=== PATIENT | male | born 1990 | race African-American/Black ===

== ENCOUNTER 2018-10-02 07:56 | Emergency (ER) | payer SELFPAY ==
[~2018-10-02] VITALS: Ht 167.6 cm; Wt 61.7 kg
[2018-10-02 08:17] VITALS: BP 114/70
--- NOTE | 2018-10-02 08:20 | NUR ---
ED Nurse Note: Patient walked in to ER c/o SOB. pt aao x4 and ambulates with steady gait. skin clean and intact. pt coughing frequently with barking sound noted. no N/V. pt c/o sore throat 02/23.
[2018-10-02] MEDS ORDERED: Ipratropium 0.02% Inh Soln 2.5ml UD HHN SCH (08:30)
[2018-10-02] MEDS ORDERED: Albuterol ud Inhalation HHN SCH (08:30)
--- NOTE | 2018-10-02 09:00 | NUR ---
ED Nurse Note: Patient received breathing treatment at the bedside.
--- NOTE | 2018-10-02 09:52 | NUR ---
ED Nurse Note: ERMD at bedside speaking to the pt.
[2018-10-02] MEDS ORDERED: ALBUTEROL SULF8.5 GM INH (09:58)
[2018-10-02] MEDS ORDERED: PROMETHAZINE-C118 M1 ORAL (09:58)
[2018-10-02] MEDS ORDERED: FLOVENT2 PUFF2 INH (09:58)
[2018-10-02] MEDS ORDERED: PREDNISONE20 MG ORAL (09:58)
[2018-10-02 10:10] VITALS: BP 114/70
--- NOTE | 2018-10-02 10:10 | NUR ---
ER DISCHARGE NOTE: Patient is cleared to be discharged per ERMD DR Chavez, pt is aox4, on room air, with stable vital signs. pt was given dc and prescription instructions, pt was able to verbalize understanding, pt id band removed without complications. pt is able to ambulate with steady gait. pt took all belongings.
--- NOTE | 2018-10-02 11:42 | Emergency Room Report ---
History of Present Illness General Chief Complaint: Upper Respiratory Illness Source: Patient, Family Member Present Illness HPI 28-year-old M presents ED for evaluation. complaining of shortness of breath, cough and wheezing for 2 weeks. History of asthma. Denies fevers or chills. Denies sore throat or earache. Denies sick contacts or recent travel. No other aggravating relieving factors. Denies any other associated symptoms Allergies: Coded Allergies: SULFA (SULFONAMIDE ANTIBIOTICS) (Verified Allergy, Severe, Anaphylaxis, ) SULFAMETHOXAZOLE (Verified Allergy, Severe, Anaphylaxis, 10/02/18) TRIMETHOPRIM (Verified Allergy, Severe, Anaphylaxis, 10/02/18) Patient History Past Medical History: asthma Past Surgical History: none Pertinent Family History: none Social History: Denies: smoking, alcohol use, drug use Immunizations: UTD Reviewed Nursing Documentation: PMH: Agreed; PSxH: Agreed Nursing Documentation-PMH Past Medical History: No History, Except For Hx Cardiac Problems: Yes - echmo, diaphragmatic hernia with repair Hx Asthma: Yes Review of Systems All Other Systems: negative except mentioned in HPI Physical Exam Vital Signs Date Time Temp Pulse Resp B/P (MAP) Pulse Ox O2 Delivery O2 Flow Rate FiO2 10/02/18 08:07 98.2 104 20 94 Room Air 10/02/18 08:17 114/70 Sp02 EP Interpretation: reviewed, normal General Appearance: no apparent distress, alert, GCS 15, non-toxic Head: normocephalic, atraumatic Eyes: bilateral eye normal inspection, bilateral eye PERRL ENT: hearing grossly normal, normal pharynx, no angioedema, normal voice Neck: full range of motion, supple/symm/no masses Respiratory: chest non-tender, decreased breath sounds, speaking full sentences , wheezing Cardiovascular #1: regular rate, rhythm, no edema Cardiovascular #2: 2+ carotid (R), 2+ carotid (L), 2+ radial (R), 2+ radial (L) , 2+ dorsalis pedis (R), 2+ dorsalis pedis (L) Gastrointestinal: normal bowel sounds, non tender, soft, non-distended, no guarding, no rebound Rectal: deferred Genitourinary: normal inspection, no CVA tenderness Musculoskeletal: back normal, gait/station normal, normal range of motion, non- tender Neurologic: alert, oriented x3, responsive, motor strength/tone normal, sensory intact, speech normal Psychiatric: judgement/insight normal, memory normal, mood/affect normal, no suicidal/homicidal ideation Reflexes: 3+ bicep (R), 3+ bicep (L), 3+ tricep (R), 3+ tricep (L), 3+ knee (R) , 3+ knee (L) Skin: normal color, no rash, warm/dry, well hydrated Lymphatic: no adenopathy Medical Decision Making Diagnostic Impression: Primary Impression: Bronchitis ER Course Hospital Course 28-year-old male presents to ED complaining of cough, wheezing Differential diagnoses include: URI, bronchitis, asthma/COPD, pneumonia Clinical course Patient placed on stretcher. After initial history and physical I ordered prednisone and nebulizer treatment. Upon reassessment patient states cough and symptoms have improved. Findings consistent with bronchitis. Discussed findings with patient. Patient states that he does use inhaler every day. I discussed the option of control steroid inhaler which patient agrees to. We'll prescribe Flovent. Does not have a PMD. We'll provide referrals Diagnosis - bronchitis Stable and discharged home with prescriptions for Rx prednisone, flovent, albuterol, promethazine/codeine. Instructed to followup with PMD. Return to ED if symptoms recur or worsen Last Vital Signs Date Time Temp Pulse Resp B/P (MAP) Pulse Ox O2 Delivery O2 Flow Rate FiO2 10/02/18 10:10 98.2 78 18 114/70 100 Room Air Status: improved Disposition: HOME, SELF-CARE Condition: Stable Scripts Fluticasone Propionate (Flovent Hfa) 12 Gm Aer.w.adap 2 PUFFS INH TWICE A DAY, #1 EA 0 Refills Prov: Joni Chavez MD 10/02/18 Codeine/Promethazine Hcl* (PROMETHAZINE-CODEINE SYRUP*) 118 Ml Syrup 5 ML ORAL Q6H PRN for For Cough, #118 ML 0 Refills Prov: Joni Chavez MD 10/02/18 Prednisone* (PREDNISONE*) 20 Mg Tablet 40 MG ORAL DAILY, #10 TAB Prov: Joni Chavez MD 10/02/18 Albuterol Sulfate* (ALBUTEROL SULFATE MDI*) 8.5 Gm Hfa.aer.ad 2 PUFF INH Q6H, #1 EA 0 Refills Prov: Joni Chavez MD 10/02/18 Referrals: NOT CHOSEN IPA/,REFERRING (PCP) Meeta Mai [facility]. [facility] Patient Instructions: Acute Bronchitis, [id number] Additional Instructions: complete prednisone prescription. then start flovent Joni Chavez MD October 02, 2018 11:42
== END 2018-10-02 10:11 | disposition home or self-care (01) ==
LOC: EMR 08:24
DX: J20.9 Acute bronchitis, unspecified (principal); Z88.0 Allergy status to penicillin; Z88.8 Allergy status to other drugs, medicaments and biological substances
CPT/HCPCS: 94640; 94664; 99284; J7512

== ENCOUNTER 2019-04-20 09:04 | Emergency (ER) | payer SELFPAY ==
[~2019-04-20] VITALS: Ht 167.6 cm; Wt 59.0 kg
[~2019-04-20 09:04] MED LIST: ALBUTEROL SULF8.5 GM INH; FLOVENT2 PUFF2 INH; PREDNISONE20 MG ORAL; PROMETHAZINE-C118 M1 ORAL
[2019-04-20 09:29] VITALS: BP 126/85
--- NOTE | 2019-04-20 09:35 | NUR ---
ED Nurse Note: pt walked in c/o headache x 1 month and sob pt speaking in clear full sentences no sob notes. pt awaiting ermd eval.
[2019-04-20] MEDS ORDERED: Albuterol ud Inhalation HHN ONE (09:45)
[2019-04-20] MEDS ORDERED: Pseudoephedrine 30mg tab ORAL ONE (09:45)
[2019-04-20] MEDS ORDERED: Ipratropium 0.02% Inh Soln 2.5ml UD HHN ONE (09:45)
--- NOTE | 2019-04-20 10:31 | Emergency Room Report ---
History of Present Illness General Chief Complaint: Headache Source: Patient Present Illness HPI Patient presents with headache, sinus pain and wheezing. He has a nebulizer at home and has been using this. He denies any fevers or chills. He has some yellow discharge from his nose but when he coughs there is clear phlegm. He denies any sore throat. There is no nausea, vomiting or diarrhea. The pain in his head is rated 7/10 and aching mainly in his maxillary sinuses. Denies any neck pain. No blood thinners, IV drug use, oncologic problems, unilateral weakness or numbness. History of asthma. His brother is being seen today with strep pharyngitis. No chest pain, palpitations, dysuria, abdominal pain, joint pain, rashes, depression, anxiety, visual changes, dizziness. Allergies: Coded Allergies: SULFA (SULFONAMIDE ANTIBIOTICS) (Verified Allergy, Severe, Anaphylaxis, ) SULFAMETHOXAZOLE (Verified Allergy, Severe, Anaphylaxis, 10/02/18) TRIMETHOPRIM (Verified Allergy, Severe, Anaphylaxis, 10/02/18) Patient History Past Medical History: see triage record Past Surgical History: other - Diaphragmatic hernia Social History: Reports: drug use - THC; Denies: smoking Social History Narrative Lives with his brother Reviewed Nursing Documentation: PMH: Agreed; PSxH: Agreed Nursing Documentation-PMH Past Medical History: No History, Except For Hx Cardiac Problems: Yes - echmo, diaphragmatic hernia with repair Hx Asthma: Yes Hx COPD: No Hx Diabetes: No Hx Cancer: No Hx Gastrointestinal Problems: No Hx Dialysis: No History Of Psychiatric Problem: No Hx Neurological Problems: No Hx Cerebrovascular Accident: No Hx Seizures: No Review of Systems All Other Systems: negative except mentioned in HPI Physical Exam Vital Signs Date Time Temp Pulse Resp B/P (MAP) Pulse Ox O2 Delivery O2 Flow Rate FiO2 04/20/19 09:16 98.6 78 16 126/85 (99) 96 Room Air 04/20/19 09:53 21 Sp02 EP Interpretation: reviewed, normal General Appearance: well appearing, no apparent distress, GCS 15 Head: normocephalic Eyes: bilateral eye normal inspection, bilateral eye PERRL, bilateral eye EOMI ENT: normal pharynx, moist mucus membranes Neck: supple, no meningismus Respiratory: wheezing, expiration - Minimal Cardiovascular #1: regular rate, rhythm, no edema Cardiovascular #2: 2+ radial (L) Gastrointestinal: normal inspection, non tender Musculoskeletal: gait/station normal, normal range of motion, no calf tenderness Neurologic: alert, grossly normal Psychiatric: mood/affect normal Skin: no rash Medical Decision Making Diagnostic Impression: Primary Impression: Bronchitis Additional Impressions: Headache Qualified Codes: G44.89 - Other headache syndrome Viral syndrome Bronchospasm ER Course Patient presents with headache, sinus pain and wheezing. Differential includes sinusitis, viral upper respiratory illness, bronchitis, exacerbation of asthma amongst others. There are no red flag symptoms. atient is treated with prednisone, Tylenol, breathing treatments. Patient improved with treatment. Discussed treatment plan with patient. No bacterial infectious etiology identified. This even though the patient is exposed to his brother who has strep pharyngitis. Patient stable for outpatient observation and treatment. Last Vital Signs Date Time Temp Pulse Resp B/P (MAP) Pulse Ox O2 Delivery O2 Flow Rate FiO2 04/20/19 10:49 98.0 78 19 120/68 99 Room Air 04/20/19 09:53 21 Status: improved Disposition: HOME, SELF-CARE Condition: Improved Scripts Acetaminophen (Tylenol) 325 Mg Tablet 650 MG ORAL Q6H PRN for Prn Pain/Headache/Temp > 101, #20 TAB 0 Refills Prov: Yadiel Davis MD 04/20/19 Chlorpheniramine Maleate (CHLOR-TRIMETON) 4 Mg Tablet 4 MG PO Q6HR PRN for congestion, #10 TAB Prov: Yadiel Davis MD 04/20/19 Prednisone* (PREDNISONE*) 20 Mg Tablet 40 MG ORAL DAILY, #10 TAB Prov: Yadiel Davis MD 04/20/19 Albuterol Sulfate* (ALBUTEROL SULFATE MDI*) 8.5 Gm Hfa.aer.ad 2 PUFF INH Q6H, #1 EA 0 Refills Prov: Yadiel Davis MD 04/20/19 Referrals: NOT CHOSEN IPA/,REFERRING (PCP) Yadiel Davis MD Apr 20, 2019 10:31
[2019-04-20] MEDS ORDERED: CHLOR-TRIMETON4 MG PO (10:34)
[2019-04-20] MEDS ORDERED: TYLENOL325 MG ORAL (10:34)
[2019-04-20] MEDS ORDERED: ALBUTEROL SULF8.5 GM INH (10:34)
[2019-04-20] MEDS ORDERED: PREDNISONE20 MG ORAL (10:34)
[2019-04-20 10:49] VITALS: BP 120/68
--- NOTE | 2019-04-20 10:49 | NUR ---
ER DISCHARGE NOTE: Patient is cleared to be discharged per ERMD, pt is aox4, on room air, with stable vital signs. pt was given dc and prescription instructions, pt was able to verbalize understanding, pt id band removed. pt is able to ambulate with steady gait. pt took all belongings.
== END 2019-04-20 10:49 | disposition home or self-care (01) ==
LOC: EMR 09:37
DX: J20.9 Acute bronchitis, unspecified (principal); G44.89 Other headache syndrome; B34.9 Viral infection, unspecified; J45.909 Unspecified asthma, uncomplicated; Z88.2 Allergy status to sulfonamides; Z88.1 Allergy status to other antibiotic agents
CPT/HCPCS: 94640; 94664; 99284; J7512